=== PATIENT | male | born 1990 | race Caucasian/White ===

== ENCOUNTER 2020-01-19 10:29 | Emergency (ER) | payer BC, SELFPAY ==
--- NOTE | ~2020-01-19 | XR_ITS ---
EXAMINATION: XR chest 1V portable DATE: 01/19/2020 11:17 INDICATION: Shortness of breath. Coughing. Laryngitis. TECHNIQUE: frontal view of the chest was obtained. COMPARISON: Chest radiograph dated 08/23/2019 FINDINGS: The lungs remain clear with no focal airspace opacities, pulmonary edema, pleural effusion or pneumot horax. The cardiomediastinal silhouette is normal. Visualized bones and soft tissues are unremarkable . IMPRESSION: 1. No acute cardiopulmonary disease. Reviewed, dictated and finalized at location A.
[2020-01-19 10:30] VITALS: BP 122/77; PULSE 75; RESP 20; TEMP 36.8; O2SAT 98
--- NOTE | 2020-01-19 10:54 | ECG_ITS ---
Measurements Intervals [place] Rate: 72 P: 46 RI: 167 QRS: 82 QRSD: 89 T: 47 QT: 404 QTc: 443 Interpretive Statements SINUS RHYTHM WITH SINUS ARRHYTHMIA DELAYED PRECORDIAL R/S TRANSITION ST ELEVATION IN DIFFUSE LEADS- PROBABLY EARLY REPOLARIZATION BORDERLINE ECG Electronically Signed On 01-19-2020 12:06:50 CDT by Clay Scanlon D.O.
[2020-01-19] MEDS: methylPREDNISolone ACETATE 40 MG/ML VIAL 80 MG IM (11:05)
--- NOTE | 2020-01-19 11:11 | PC.NURSE ---
report to DION Chance.
[2020-01-19 11:17] LABS: Basophils Absolute Auto 0.04 K/mm3 (0.00-0.10); Basophils Percent Auto 0.4 % (0.0-1.0); Eosinophils Absolute Auto 0.21 K/mm3 (0.02-0.50); Eosinophils Percent Auto 1.9 % (1.0-6.0); Hematocrit 46.2 % (40.0-54.0); Hemoglobin 15.9 g/dL (14.0-18.0); Immature Granulocyte Absolute 0.06 K/mm3 (0.00-0.00); Immature Granulocyte Percent A 0.5 % (0.0-0.0); Lymphocytes Absolute Auto 1.89 K/mm3 (1.10-4.50); Lymphocytes Percent Auto 16.7 % (18.0-42.0); Mean Corpuscular HGB Conc 34.4 g/dL (32.0-36.0); Mean Corpuscular Hemoglobin 29.5 pg (27.0-31.0); Mean Corpuscular Volume 85.7 fL (78.0-102.0); Mean Platelet Volume 10.4 fl (8.7-11.0); Monocytes Absolute Auto 0.78 K/mm3 (0.10-0.90); Monocytes Percent Auto 6.9 % (2.0-11.0); Neutrophils Absolute Auto 8.4 K/mm3 (1.7-7.2); Neutrophils Percent Auto 73.6 % (50.0-70.0); Platelet Count Result 258 K/mm3 (150-420); Red Blood Count 5.39 M/mm3 (4.70-6.10); Red Cell Distribution Width 12.4 % (11.6-14.4); White Blood Count 11.4 K/mm3 (4.8-10.8)
[2020-01-19 11:30] VITALS: PULSE 72; RESP 16
[2020-01-19] MEDS: IPRATROPIUM 0.5 MG/ALBUTEROL SULFATE 2.5 MG AMPUL.NEB 3 ML INHALATION (11:30)
[2020-01-19 11:34] LABS: Alanine Aminotransferase 61 U/L (16-63); Alkaline Phosphatase 76 U/L (46-116); Anion Gap 11.6 mmol/L (7-16); Aspartate Amino Transferase 26 U/L (15-37); Bilirubin,Total 0.5 mg/dL (0.00-1.00); Blood Urea Nitrogen 14 mg/dL (7-18); Calcium 8.6 mg/dL (8.5-10.1); Carbon Dioxide 26 mmol/L (21-32); Chloride 105 mmol/L (98-108); Estimated CRCL calculation 113 ml/min; Estimated Glomerular Filt Rate > 60; Glucose 106 mg/dL (70-99); Osmolality Calculated 288 mOsm/kg (285-295); Potassium 3.6 mmol/L (3.5-5.1); Sodium 139 mmol/L (136-145); Total Protein 7.2 g/dL (6.4-8.2)
[2020-01-19 11:35] LABS: Troponin I < 0.02 ng/mL (0.00-0.056)
[2020-01-19 11:39] VITALS: PULSE 60; RESP 16
--- NOTE | 2020-01-19 11:55 | ED.SOB ---
HPI - SOB/Dyspnea General Chief Complaint: Shortness of Breath/Dyspnea Stated Complaint: Loss of voice,Cough Trouble breathing Source: patient Mode of arrival: ambulatory Limitations: no limitations History of Present Illness HPI Narrative: This is a 29-year-old male with no known past medical history presents with some shortness of breath while he was working outdoors and came in contact with some [place] products causing some shortness of breath with cough cough is nonproductive there is no chest pain or tightness no history of asthma or COPD, patient is a smoker denies alcohol use does not take any inhalers or any prescription medications. Symptoms started earlier today while he was working outdoors causing him to be short of breath. MD elicited complaint: shortness of breath and cough Onset (ago): hour(s) Timing: intermittent Severity: moderate Exacerbating factors: coughing, warm air, humidity, strong odors and cleaning product exposure Relieving factors: rest Associated symptoms: cough Related Data Allergies Allergy/AdvReac Type Severity Reaction Status Date / Time [place] Allergy Unknown Verified 01/19/20 11:01 cefaclor [From Ceclor] Allergy Unknown Verified 08/23/19 07:47 Sulfa (Sulfonamide Allergy Unknown Verified 08/23/19 07:47 Antibiotics) Review of Systems Review of Systems: All systems reviewed & are unremarkable except as noted in HPI and below PMFSH Past Medical History Medical History No active medical problems Social History Social History Smoking status: Current every day smoker Alcohol intake: former Substance use: current Substance use type: marijuana Exam Const: General: no acute distress Orientation/consciousness: patient oriented x3 HENMT: Head: normal to inspection Eyes: Conjunctivae: conjunctivae normal Pupils: Equal, round and reactive pupils present Neck: Neck: normal visual inspection and no lymphadenopathy Chest: Chest palpation & inspection: normal inspection of the chest Resp: Effort & Inspection: normal respiratory effort Auscultation: clear to auscultation bilaterally Cardio: Rate: regular rate Rhythm: regular rhythm GI: GI Palp: Yes Soft to palpation : Testes: Testes normal Skin: General skin exam: normal color Rashes: no rashes Neuro: General: patient oriented x3 Extrem: General: normal to inspection Psych: Mental Status: mental status grossly normal 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 Expressive the patient that could be related to allergies and will give discharge medications include ProAir and Medrol Dosepak. Vital Signs Vital signs: Vital Signs Temperature 36.8 C 01/19/20 10:30 Pulse Rate 75 01/19/20 10:30 Respiratory Rate 20 01/19/20 10:30 Blood Pressure 122/77 01/19/20 10:30 Pulse Oximetry 98 01/19/20 10:30 Temperature 36.8 C 01/19/20 10:30 Pulse Rate 60 01/19/20 11:39 Respiratory Rate 16 01/19/20 11:39 Blood Pressure 122/77 01/19/20 10:30 Pulse Oximetry 98 01/19/20 10:30 MDM - SOB/Dyspnea Lab Data Result diagrams: 01/19/20 11:04 01/19/20 11:04 Labs: Lab Results 01/19/20 01/19/20 01/19/20 Range/Units 10:55 11:04 11:04 WBC 11.4 H (4.8-10.8) K/mm3 RBC 5.39 (4.70-6.10) M/mm3 Hgb 15.9 (14.0-18.0) g/dL Hct 46.2 (40.0-54.0) % MCV 85.7 (78.0-102.0) fL MCH 29.5 (27.0-31.0) pg MCHC 34.4 (32.0-36.0) g/dL RDW 12.4 (11.6-14.4) % Plt Count 258 (150-420) K/mm3 MPV 10.4 (8.7-11.0) fl Immature Gran % (Auto) 0.5 H (0.0-0.0) % Neut % (Auto) 73.6 H (50.0-70.0) % Lymph % (Auto) 16.7 L (18.0-42.0) %
[2020-01-19 12:11] VITALS: BP 117/59; PULSE 65; RESP 16; O2SAT 98
[2020-01-20 13:04] LABS: SARS-CoV-2 RNA PCR Negative
== END 2020-01-19 12:12 | disposition home or self-care (01) ==
PROVIDERS: Emergency Provider Emergency Medicine; PCP Physician Assistant; Visit Provider Emergency Medicine
DX: J40 Bronchitis, not specified as acute or chronic (principal); T78.40XA Allergy, unspecified, initial encounter
CPT/HCPCS: 36415; 71045; 80053; 84484; 85025; 87635; 93005; 94640; 96372; 99283; 99284; C9803; J1030; U0003

== ENCOUNTER 2020-06-13 12:37 | Observation (INO) | payer BC, SELFPAY ==
--- NOTE | ~2020-06-13 | CT_ITS ---
EXAMINATION: CT abdomen pelvis w con EXAM DATE: 06/13/2020 14:34 INDICATION: abdominal pain, increased white blood cell count, vomiting . TECHNIQUE: Spiral CT of the abdomen and pelvis was performed following intravenous injection of 100 m L Omnipaque 350. Axial, coronal and sagittal images were reviewed. The dose-length product (DLP) fo r this examination was 500.45 mGy-cm. The exposure was tailored according to patient size (auto mA e xposure control), and iterative reconstruction (ASIR) was used as additional dose reduction technique . Comparison is made to prior examination from 08/23/2019. FINDINGS: There is hepatic steatosis without suspicious focal lesion identified. Spleen, adrenal glan ds, pancreas are unremarkable. Gallbladder is unremarkable. No biliary obstruction. Portal and spl enic veins are patent. Kidneys enhance symmetrically. There is no hydronephrosis. There is an 8 mm right renal cyst and perihilar location. The prostate is unremarkable. The bladder is unremarkable. There is no retroperitoneal or pelvic lymphadenopathy. The appendix is normal. The stomach and small bowel are unremarkable. There is expected amount of c olonic stool. No free intraperitoneal gas. The heart is normal in size. There are no pericardial or pleural effusions. The lung bases are unremarkable. The bones are unremarkable. IMPRESSION: 1. Hepatic steatosis. Reviewed, dictated and finalized at location B. 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 Hepatic steatosis.
--- NOTE | 2020-06-13 13:04 | ED.NAVMDI ---
HPI - Nausea/Vomiting/Diarrhea General Chief complaint: Nausea/Vomiting/Diarrhea Stated complaint: nauseated cold chills Time Seen by Provider: 06/13/20 13:04 Source: patient Mode of arrival: ambulatory Limitations: no limitations History of Present Illness HPI Narrative: 29-year-old man who was previously well comes in today complaining of right-sided abdominal pain and vomiting and chills that started when he woke up this morning. Patient states he has been vomiting since. He denies fever, headache, chest pain, diarrhea, sick contacts of any kind, no COVID exposures. He lives with his girlfriend who was well. He states that he occasionally smokes marijuana. He denies taking any medications or other drugs. He denies history of surgery. MD elicited complaint: nausea, vomiting and abdominal pain Onset (ago): hour(s) (6) Description of vomiting: watery Associated nausea: Yes Associated abdominal pain: Yes Location of pain: RLQ and R flank Pain consistency: constant Severity: severe Quality: sharp Exacerbating factors: none Relieving factors: none Context: marijuana use Associated symptoms: fever/chills and other (chills) Treatment prior to arrival: none Related Data Home Medications Medication Instructions Recorded Confirmed No Home Medications 06/13/20 06/13/20 Allergies Allergy/AdvReac Type Severity Reaction Status Date / Time [place] Allergy Unknown Verified 01/19/20 11:01 cefaclor [From Ceclor] Allergy Unknown Verified 08/23/19 07:47 Sulfa (Sulfonamide Allergy Unknown Verified 08/23/19 07:47 Antibiotics) Review of Systems Constitutional: Constitutional: Reports chills Eyes: Eyes: Denies change in vision, Denies diplopia and Denies photophobia ENT: Reports headache(s), Denies nasal congestion and Denies sore throat Cardiovascular: Cardiovascular: Denies chest pain, Denies leg edema and Denies dyspnea on exertion Respiratory: Respiratory: Denies cough, Denies dyspnea and Denies wheezing Gastrointestinal: Gastrointestinal: Reports abdominal pain, Denies melena, Denies hematochezia, Denies diarrhea, Reports nausea, Reports vomiting and Denies hematemesis Genitourinary: Genitourinary: Denies hematuria and Denies dysuria Musculoskeletal: Musculoskeletal: Denies arthralgias and Denies joint swelling Integumentary/Breasts: Skin/Breast: Denies lesions, Denies erythema and Denies rash Neurologic: Denies confusion, Denies vertigo, Denies dizziness, Denies syncope, Denies lack of coordination, Denies focal weakness and Denies loss of vision Hematologic/Lymphatic: Hematologic/Lymphatic: Denies easy bleeding and Denies easy bruising Allergic/Immunologic: Allergic/Immunologic: Denies urticaria, Denies lip swelling and Denies throat swelling PMFSH Past Medical History Medical History (Updated 06/13/20 @ 16:14 by Prabhjot Rose MD) No active medical problems Social History Social History Smoking status: Current every day smoker Alcohol intake: former Substance use: current Substance use type: marijuana Exam Const: General: cooperative, healthy appearing, acute distress moderate and uncomfortable Nutritional Appearance: average body habitus Orientation/consciousness: patient oriented x3 Limitations: no limitations HENMT: Head: normal to inspection Ears: TM's normal bilaterally and EAC's normal Face and sinus: normal facial exam Mouth: Yes Normal oral and palatal mucosa present and Yes moist mucous membranes Throat: posterior oropharynx normal Eyes: General: appearance normal, both eyes and all related structures Cornea: corneas normal Pupils: Equal, round and reactive pupils present EOM: EOMs intact bilaterally Resp: Effort & Inspection: normal respiratory effort, able to speak in complete sentences and no respiratory distress Auscultation: clear to auscultation bilaterally Cardio: Rate: regular rate Rhythm: regular
[2020-06-13 13:05] VITALS: BP 114/74; PULSE 58; RESP 20; TEMP 36.3; O2SAT 99
[2020-06-13] MEDS: SODIUM CHLORIDE 0.9% IV 1,000 ML 999 ML IV CONT (13:15)
[2020-06-13] MEDS: ONDANSETRON INJ 4 MG/2 ML VIAL IV PUSH ×3 (13:15→22:30)
[2020-06-13 13:33] LABS: Basophils Absolute Auto 0.04 K/mm3 (0.00-0.10); Basophils Percent Auto 0.2 % (0.0-1.0); Hematocrit 50.4 % (40.0-54.0); Hemoglobin 17.2 g/dL (14.0-18.0); Immature Granulocyte Absolute 0.08 K/mm3 (0.00-0.00); Immature Granulocyte Percent A 0.5 % (0.0-0.0); Lymphocytes Absolute Auto 0.98 K/mm3 (1.10-4.50); Lymphocytes Percent Auto 5.9 % (18.0-42.0); Mean Corpuscular HGB Conc 34.1 g/dL (32.0-36.0); Mean Corpuscular Hemoglobin 29.1 pg (27.0-31.0); Mean Corpuscular Volume 85.1 fL (78.0-102.0); Mean Platelet Volume 10.4 fl (8.7-11.0); Monocytes Absolute Auto 0.55 K/mm3 (0.10-0.90); Monocytes Percent Auto 3.3 % (2.0-11.0); Neutrophils Absolute Auto 15.1 K/mm3 (1.7-7.2); Neutrophils Percent Auto 90.1 % (50.0-70.0); Platelet Count Result 345 K/mm3 (150-420); Red Blood Count 5.92 M/mm3 (4.70-6.10); Red Cell Distribution Width 12.2 % (11.6-14.4); White Blood Count 16.8 K/mm3 (4.8-10.8)
[2020-06-13 13:49] LABS: Alanine Aminotransferase 85 U/L (16-63); Albumin Level 5.3 g/dL (3.4-5.0); Alkaline Phosphatase 84 U/L (46-116); Anion Gap 17 mmol/L (8-16); Aspartate Amino Transferase 35 U/L (15-37); Bilirubin,Total 0.9 mg/dL (0.00-1.00); Blood Urea Nitrogen 20 mg/dL (7-18); Carbon Dioxide 21 mmol/L (21-32); Chloride 103 mmol/L (98-108); Estimated Glomerular Filt Rate > 60; Glucose 176 mg/dL (70-99); Lipase 48 U/L (73-393); Osmolality Calculated 298 mOsm/kg (285-295); Potassium 4.2 mmol/L (3.5-5.1); Sodium 141 mmol/L (136-145); Total Protein 8.9 g/dL (6.4-8.2)
[2020-06-13 13:52] LABS: Lactic Acid Reflex 1.8 mmol/L (0.4-2.0)
[2020-06-13 14:00] VITALS: BP 121/69; PULSE 61; RESP 20; O2SAT 98
[2020-06-13] MEDS: MORPHINE SULFATE (*CRX) 4 MG/ML INJ IV PUSH (14:10)
[2020-06-13] MEDS: PANTOPRAZOLE SODIUM IV 40 MG VIAL IV PUSH (14:10)
[2020-06-13 14:16] LABS: Add Urine Microscopic? YES; Appearance Urine Clear (Clear); Bilirubin Urine 1+ (Negative); Blood Urine Negative (Negative); Color Urine Yellow (Yellow); Glucose Urine UA Negative (Negative); Ketones Urine 3+ (Negative); Leukocyte Esterase Ur Negative LEU/UL (Negative); Nitrate Urine Negative (Negative); Protein Urine 1+ (Negative); Specific Grav Ur 1.025 (1.010-1.020); pH Urine 8.5 (5.0-8.0)
[2020-06-13 14:22] LABS: RBC Urine 0-2 /hpf (0-2)
[2020-06-13 14:23] LABS: Amorphous Sediment Urine Moderate; Bacteria Urine 2+ /hpf; Squamous Epithelial Cell Urine Rare /hpf (Few); WBC Urine 0-3 /hpf (0-3)
[2020-06-13 14:24] LABS: Mucus Urine Heavy /lpf
[2020-06-13] MEDS: PROMETHAZINE HCL 25 MG/ML AMPUL IM (14:40)
--- NOTE | 2020-06-13 14:58 | PC.NURSE ---
report to DION Menard
--- NOTE | 2020-06-13 14:58 | PC.NURSE ---
pt resting per cot.
[2020-06-13 15:15] VITALS: BP 154/81; PULSE 61; RESP 20; O2SAT 98
--- NOTE | 2020-06-13 15:15 | PC.NURSE ---
report to leo costa
[2020-06-13 16:00] VITALS: BP 147/58; PULSE 58; RESP 20; O2SAT 98
[2020-06-13] MEDS: ACETAMINOPHEN 500 MG TABLET 1000 MG (16:00)
[2020-06-13 16:48] VITALS: BMI 24.1
[2020-06-13] MEDS: DEXTROSE 5%/0.9% SOD CHL 1,000 ML 200 ML IV CONT (17:00)
[2020-06-13 17:02] LABS: Amphetamine Screen Urine Negative (Negative); Barbiturate Screen Urine Negative (Negative); Benzodiazepines Screen Urine Negative (Negative); Cannabinoid Screen Urine Positive (Negative); Cocaine Screen Urine Negative (Negative); Methadone Screen Urine Negative (Negative); Opiate Screen Urine Negative (Negative); Phencyclidine Screen Urine Negative (Negative)
[2020-06-13 17:06] LABS: Ethanol 3 mg/dL (0-6)
[2020-06-13 17:07] LABS: Acetaminophen 0 ug/mL (10-30)
--- NOTE | 2020-06-13 17:10 | ADMGEN ---
This patient, Chris Ni, was admitted to 2nd Floor Room 205-2. Patient/family oriented to hospital policies and general routines including ID bracelet, bed and alarms, visiting hours, pain management, procedures, bathroom and other care routines, personal items, smoking policy, room service/diet, and visiting hours. Information on how to activate the Rapid Response Team has been discussed. Patient/Family are encouraged to report perceived risks to care and to ask questions if they do not understand what they are told or what they should do.
[2020-06-13 17:12] LABS: Base Excess ABG -3.7 mmol/L (0-2); Carboxyhemoglobin 2.1 % (0-1.5); HCO3 ABG 21.2 mmol/L (23-29); Methemoglobin ABG 0.2 % (0-1.5); Oxygen Content ABG 24.1 %vol (16.0-22.0); Oxygen Saturation ABG 98.6 % (95-97); Oxyhemoglobin 96.3 % (94-100); PCO2 ABG 38.4 mmHg (35-45); PO2 ABG 135.8 mmHg (80-90); Reduced Hemoglobin 1.4 % (0-1.5); Total Hemoglobin 17.7 g/dL; pH ABG 7.36 (7.35-7.45)
[2020-06-13 17:13] LABS: Device ROOM AIR; Modified Allen's Test Pass; Site Drawn RIGHT RADIAL
--- NOTE | 2020-06-13 17:14 | PC.NURSE ---
pt asks for more nausea and pain meds, neither able to be given at this time, pt is aware, warm blanket given
[2020-06-13 17:19] VITALS: BP 129/93; PULSE 75; RESP 20; TEMP 36.3; O2SAT 97
[2020-06-13] MEDS: MORPHINE SULFATE (*CRX) 2 MG/ML INJ IV PUSH (18:13)
--- NOTE | 2020-06-13 18:18 | PC.NURSE ---
pt asks for pain meds and nausea, another warm blanket given, fluids running
--- NOTE | 2020-06-13 18:49 | PC.NURSE ---
pt requests ice chips, tolerating well, iv running
--- NOTE | 2020-06-13 20:40 | PC.NURSE ---
pt seems to be feeling better, sitting up in bed drinking denise mist, has eaten a full cup of ice chips, reports the nausea is gone at this time
--- NOTE | 2020-06-13 20:43 | PC.NURSE ---
pt given hu and toiletries bag that his mother has dropped off for him, mother calls for information, pt gives verbal permission to rn to discuss his medical information with her, iv fluids running
--- NOTE | 2020-06-13 21:47 | PC.NURSE ---
pt resting in bed, denies n/v, urinal emptied, iv running
--- NOTE | 2020-06-13 22:15 | PC.NURSE ---
resting in bed, no s/sx of distress or n/v, iv running, call light in reach
--- NOTE | 2020-06-13 22:38 | PC.NURSE ---
pt calls from shower for towels, pt has taken iv pump into bathroom with him for shower, given fresh towels and gown
--- NOTE | 2020-06-13 23:30 | PC.NURSE ---
Patient resting in bed. IV site is intact and fluids are infusing per order. No signs of distress are observed. Call light is within reach.
[2020-06-14] VITALS: BP 129/93; PULSE 78; RESP 18; TEMP 37.7; O2SAT 98
[2020-06-14] MEDS: DEXTROSE 5%/0.9% SOD CHL 1,000 ML 200 ML IV CONT ×2 (00:16→04:54)
[2020-06-14] MEDS: MORPHINE SULFATE (*CRX) 2 MG/ML INJ IV PUSH (00:28)
--- NOTE | 2020-06-14 00:30 | PC.NURSE ---
Patient resting in bed. He was given a cup of ice and Carissa Mist per request. He reports upper abdominal pain but denies nausea at this time. Patient found to have a low grade temperature of 99.9, he denies chills. Charge nurse notified of temperature.
--- NOTE | 2020-06-14 01:17 | PC.NURSE ---
patient resting in bed. He states that abdominal pain has improved after receiving PRN morphine. He denies n/v at this time and seems to be tolerating Carissa Mist well.
--- NOTE | 2020-06-14 02:16 | PC.NURSE ---
Patient resting in bed. No signs of pain, distress or n/v are observed. IV fluids continue to infuse. Call light is within reach.
--- NOTE | 2020-06-14 03:29 | PC.NURSE ---
Patient resting in bed. No signs of n/v, pain or distress are observed. IV fluids are infusing per order. Call light is within reach.
--- NOTE | 2020-06-14 04:05 | PC.NURSE ---
Patient resting in bed watching television. Patient has no complaints of pain or nausea at this time. Patient tolerating clear liquids well.
--- NOTE | 2020-06-14 05:14 | PCDIET ---
Patient resting in bed. No complaints of pain or n/v at this time. Patient provided with a cup of ice per his request.
[2020-06-14 05:53] LABS: Basophils Absolute Auto 0.02 K/mm3 (0.00-0.10); Basophils Percent Auto 0.2 % (0.0-1.0); Eosinophils Absolute Auto 0.07 K/mm3 (0.02-0.50); Eosinophils Percent Auto 0.6 % (1.0-6.0); Hemoglobin 13.9 g/dL (14.0-18.0); Immature Granulocyte Absolute 0.03 K/mm3 (0.00-0.00); Immature Granulocyte Percent A 0.3 % (0.0-0.0); Lymphocytes Absolute Auto 2.18 K/mm3 (1.10-4.50); Lymphocytes Percent Auto 19.4 % (18.0-42.0); Mean Corpuscular HGB Conc 33.1 g/dL (32.0-36.0); Mean Corpuscular Hemoglobin 28.9 pg (27.0-31.0); Mean Corpuscular Volume 87.3 fL (78.0-102.0); Mean Platelet Volume 10.1 fl (8.7-11.0); Monocytes Absolute Auto 1.24 K/mm3 (0.10-0.90); Neutrophils Absolute Auto 7.7 K/mm3 (1.7-7.2); Neutrophils Percent Auto 68.5 % (50.0-70.0); Platelet Count Result 259 K/mm3 (150-420); Red Blood Count 4.81 M/mm3 (4.70-6.10); Red Cell Distribution Width 12.7 % (11.6-14.4); White Blood Count 11.3 K/mm3 (4.8-10.8)
[2020-06-14 06:13] LABS: Lactic Acid Reflex 0.8 mmol/L (0.4-2.0)
[2020-06-14 06:19] LABS: Alanine Aminotransferase 59 U/L (16-63); Albumin Level 3.7 g/dL (3.4-5.0); Alkaline Phosphatase 57 U/L (46-116); Anion Gap 11 mmol/L (8-16); Aspartate Amino Transferase 33 U/L (15-37); Bilirubin,Total 0.7 mg/dL (0.00-1.00); Blood Urea Nitrogen 11 mg/dL (7-18); Calcium 8.2 mg/dL (8.5-10.1); Carbon Dioxide 25 mmol/L (21-32); Chloride 105 mmol/L (98-108); Estimated CRCL calculation 110 ml/min; Estimated Glomerular Filt Rate > 60; Glucose 122 mg/dL (70-99); Osmolality Calculated 292 mOsm/kg (285-295); Potassium 3.5 mmol/L (3.5-5.1); Sodium 141 mmol/L (136-145); Total Protein 6.5 g/dL (6.4-8.2)
[2020-06-14 07:33] VITALS: BP 119/56; PULSE 65; RESP 18; TEMP 37.2; O2SAT 98
--- NOTE | 2020-06-14 07:56 | PC.NURSE ---
Tolerating PO fluids, advanced diet to regular for breakfast, denies nausea, no pain noted
--- NOTE | 2020-06-14 08:10 | PC.NURSE ---
Verbal order from Melony Briseno RESERVATIONIST to discontinue IV fluids at this time
--- NOTE | 2020-06-14 08:42 | PM.SD ---
Same Day Admit/Disch: HPI History of Present Illness Chief complaint: abd pain Narrative: Chris Ni is a 29 year old male who presented to the ED today with complaints of right lower quadrant pain with nausea and vomiting. Patient denies any past medical history. According to patient he woke up yesterday with nausea and vomiting. He noted that the previous night he had a [employer] and noted that it tasted funny. Patient does believe that it might have gotten food poisoning from [employer]. Patient does smoke marijuana on occasion. The patient denies SOB, CP, palpitation, extremity numbness, lightheadedness, dizziness, constipation, diarrhea, chills, or fever. Today patient has not experienced any nausea or vomiting and is able to tolerate his meals. Patient agrees that he is ready for discharge today PMFSH Past Medical History Medical History (Updated 06/14/20 @ 08:48 by YAIMA Ojeda) No active medical problems Social History Social History Smoking status: Current every day smoker Tobacco type: cigarettes Second hand tobacco smoke exposure: Yes Alcohol intake: never Substance use: current Substance use type: marijuana Spiritual care concerns: No Same Day Admit/Disch: Med Pre-admit Medications Home Medications Medication Instructions Recorded Confirmed Type ondansetron HCl [Zofran] 4 mg PO Q8H PRN #30 tablet 06/14/20 Rx Exam Narrative: Exam Narrative: GENERAL: This is a well-nourished, well-developed patient, in no apparent distress. HEAD: normocephalic, atraumatic. EYES: PERRL. Sclera clear/white. Vision is grossly intact. EARS: External ears normal, auditory canals clear and without drainage, TMs normal without perforation. Hearing grossly intact. NOSE: External nose normal with no obvious nasal discharge, nares without redness, no rhinorrhea. THROAT: Mucous membranes moist, posterior pharynx clear. NECK: Neck supple, non-tender without lymphadenopathy, masses or thyromegaly. CARDIOVASCULAR: Regular rate and rhythm without murmurs, gallops, or rubs. RESPIRATORY: Clear to auscultation. Breath sounds equal bilaterally. No wheezes, rales, or rhonchi. GASTROINTESTINAL: Abdomen soft, non-tender, nondistended. Bowel sounds are active. No hepato-splenomegaly, or palpable masses. No guarding. SKIN: warm, intact with no suspicious lesions or rash, good texture and turgor. NEURO: awake, alert, and oriented to person, place and time. There were no obvious focal neurologic abnormalities. Steady gait EXTREMITIES: Normal range of motion. No edema. No calf tenderness. Negative Homans sign bilaterally. BACK: Nontender without deformity or crepitance. No flank tenderness. DS: Data Data Completed and Pending Labs on day of discharge: Labs from last 24 hours 06/14/20 06/14/20 06/14/20 05:40 05:40 05:40 WBC 11.3 H RBC 4.81 Hgb 13.9 L Hct 42.0 MCV 87.3 MCH 28.9 MCHC 33.1 RDW 12.7 Plt Count 259 MPV 10.1 Immature Gran % (Auto) 0.3 H Neut % (Auto) 68.5 Lymph % (Auto) 19.4 [place] % (Auto) 11.0 Eos % (Auto) 0.6 L Baso % (Auto) 0.2 Lymph # (Auto) 2.18 [place] # (Auto) 1.24 H Eos # (Auto) 0.07 Baso # (Auto) 0.02 Abs Immat Gran (auto) 0.03 H Absolute Neuts (auto) 7.7 H Absolute Nucleated RBC 0.00 Nucleated RBC % 0.0 Puncture Site ABG pH ABG pCO2 ABG pO2 ABG PO2/FiO2 Ratio ABG HCO3 ABG O2 Saturation ABG O2 Content ABG Base Excess A-a Gradient Oxyhemoglobin Carboxyhemoglobin Methemoglobin Reduced Hemoglobin Total Hemoglobin O2 Delivery Device O2 Liters/Min FiO2 Sodium 141 Potassium 3.5 Chloride 105 Carbon Dioxide 25 Anion Gap 11 BUN 11 Creatinine 0.95 Estim Creat Clear Calc 110 Estimated GFR > 60 Glucose 122 H Calculated Osmolality 292 Lactic Acid 0.8 Calc
--- NOTE | 2020-06-14 09:52 | PC.NURSE ---
Up independent in room showered and dressed self, awaiting discharge evaluation by doctor and orders by DISINTEGRATOR OPERATOR
--- NOTE | 2020-06-14 11:15 | PC.NURSE ---
Discharge to home ambulatory, discharge instructions reviewed with patient, no questions or concerns regarding instructions, discussed removal of saline lock, signs and symptoms of infection to watch for.
--- NOTE | 2020-06-15 13:05 | PC.NURSE ---
Pt states he received and understood his discharge instructions. He had no other comments.
[2020-06-15 15:21] LABS: SARS-CoV-2 RNA PCR Negative
== END 2020-06-14 11:15 | disposition home or self-care (01) ==
LOC: CHSED 16:14 → CHS2ND 16:29
PROVIDERS: Nurse Practitioner; Admitting Provider Emergency Medicine; Emergency Provider Emergency Medicine; PCP Physician Assistant; Visit Provider Emergency Medicine
DX: R11.10 Vomiting, unspecified (principal); R10.31 Right lower quadrant pain; K76.0 Fatty (change of) liver, not elsewhere classified; F12.90 Cannabis use, unspecified, uncomplicated; F17.210 Nicotine dependence, cigarettes, uncomplicated; Z20.828 Contact with and (suspected) exposure to other viral communicable diseases
CPT/HCPCS: 36415; 36600; 74177; 80053; 80307; 81001; 82375; 82805; 83050; 83605; 83690; 85025; 87040; 87635; 96361; 96372; 96374; 96375; 96376; 99285; C9113; C9803; G0378; G0379; J2270; J2405; J2550; J7030; J7042; Q9965; U0003

== ENCOUNTER 2021-10-12 15:12 | Emergency (ER) | payer OTHER, MEDICAID, SELFPAY ==
--- NOTE | ~2021-10-12 | CT_ITS ---
EXAMINATION: CT abdomen pelvis w con DATE: 10/12/2021 17:49 INDICATION: Right lower quadrant pain TECHNIQUE: Computed tomography (CT) of the abdomen and pelvis was performed with 100 cc Omnipaque 350 intravenous contrast. The dose-length product was 476.25 mGy-cm. COMPARISON: CT dated 06/13/2020. FINDINGS: Lung bases are unremarkable. Heart size normal. No significant pleural or pericardial effus ion. Fatty infiltration of the liver. The spleen, pancreas, adrenal glands and kidneys are unremarkab le. Nonobstructive bowel gas pattern. Normal appendix. Colonic diverticulosis without diverticulitis. No significant vascular abnormality. No lymphadenopathy. No acute osseous abnormality. IMPRESSION: 1. No acute abdominal abnormality. Reviewed, dictated and finalized at location A. 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
[2021-10-12 15:21] VITALS: BP 122/101; PULSE 78; RESP 20; TEMP 36.4; O2SAT 97
--- NOTE | 2021-10-12 15:29 | ED.NAVMDI ---
HPI - Nausea/Vomiting/Diarrhea General Chief complaint: Nausea/Vomiting/Diarrhea Stated complaint: vomiting, sweating since this AM Time Seen by Provider: 10/12/21 15:29 Source: patient Mode of arrival: ambulatory Limitations: no limitations History of Present Illness HPI Narrative: Previously well 30 and comes emergency department complaining of sweating, nausea, vomiting and diarrhea that started this morning bruising states that he felt fine when he went to bed last night. He has had no sick contacts and denies blood in his vomitus, blood in his stool, fever, abdominal pain, or rash. States he has had some cough and cold symptoms recently. He has not had a COVID vaccine. MD elicited complaint: nausea, vomiting and diarrhea Onset (ago): hour(s) (10) Description of vomiting: food contents and watery Description of diarrhea: watery Associated nausea: Yes Associated abdominal pain: No Context: marijuana use Associated symptoms: cough and fatigue Related Data Allergies Allergy/AdvReac Type Severity Reaction Status Date / Time [place] Allergy Unknown Verified 10/12/21 18:06 cefaclor [From Ceclor] Allergy Unknown Verified 10/12/21 18:06 Sulfa (Sulfonamide Allergy Unknown Verified 10/12/21 18:06 Antibiotics) Review of Systems Review of Systems: All systems reviewed & are unremarkable except as noted in HPI and below Constitutional: Constitutional: Reports chills, Reports fatigue, Denies fever(s) and Denies weakness Eyes: Eyes: Denies change in vision and Denies photophobia ENT: Reports nasal congestion and Denies sore throat Cardiovascular: Cardiovascular: Reports chest pain and Denies radiating jaw, neck or arm pain Respiratory: Respiratory: Reports cough, Denies dyspnea and Denies wheezing Gastrointestinal: Gastrointestinal: Denies abdominal pain, Reports diarrhea, Reports nausea and Reports vomiting Genitourinary: Genitourinary: Denies hematuria, Denies dysuria and Denies urinary frequency Musculoskeletal: Musculoskeletal: Denies back pain, Denies arthralgias and Denies joint swelling Integumentary/Breasts: Skin/Breast: Denies pruritus, Denies erythema and Denies rash Allergic/Immunologic: Allergic/Immunologic: Denies throat swelling and Denies tongue swelling PMFSH Past Medical History Medical History (Updated 10/12/21 @ 18:26 by Prabhjot Rose MD) No active medical problems Social History Social History Smoking status: Current every day smoker Tobacco type: cigarettes Second hand tobacco smoke exposure: Yes Alcohol intake: never Substance use: current Substance use type: marijuana Spiritual care concerns: No Exam Const: General: healthy appearing and alert Orientation/consciousness: patient oriented x3 Limitations: no limitations Other: Mild acute distress. HENMT: Head: normal to inspection Ears: external ears normal, TM's normal bilaterally and EAC's normal General nose exam: Normal nares present Mouth: Yes moist mucous membranes Throat: posterior oropharynx normal Eyes: Cornea: corneas normal Pupils: Equal, round and reactive pupils present EOM: EOMs intact bilaterally Resp: Effort & Inspection: normal respiratory effort and not labored Auscultation: clear to auscultation bilaterally, no rales, no rhonchi and no wheezes Cardio: Rate: regular rate Rhythm: regular rhythm Heart sounds: no murmurs GI: GI Palp: Yes Soft to palpation, No Tenderness to palpation present (GI) and No Guarding due to palpation present (GI) Auscultation: normal bowel sounds Skin: General skin exam: normal color, no jaundice and no pallor Rashes: no rashes Neuro: General: patient oriented x3 and no focal motor deficits Speech: normal speech Gait exam (Neuro): Normal gait present Extrem: General: normal to inspection and no clubbing, cyanosis or edema Psych: Appearance: grossly normal and well kempt Mental Status: mental status gr
[2021-10-12] MEDS: ONDANSETRON INJ 4 MG/2 ML VIAL IV PUSH ×2 (15:45→17:25)
[2021-10-12] MEDS: SODIUM CHLORIDE 0.9% IV 1,000 ML 999 ML IV CONT ×2 (15:45→17:57)
[2021-10-12 16:01] LABS: Basophils Absolute Auto 0.04 K/mm3 (0.00-0.10); Basophils Percent Auto 0.3 % (0.0-1.0); Eosinophils Absolute Auto 0.06 K/mm3 (0.02-0.50); Eosinophils Percent Auto 0.5 % (1.0-6.0); Hematocrit 50.2 % (40.0-54.0); Hemoglobin 17.1 g/dL (14.0-18.0); Immature Granulocyte Absolute 0.04 K/mm3 (0.00-0.00); Immature Granulocyte Percent A 0.3 % (0.0-0.0); Lymphocytes Absolute Auto 1.25 K/mm3 (1.10-4.50); Lymphocytes Percent Auto 10.7 % (18.0-42.0); Mean Corpuscular HGB Conc 34.1 g/dL (32.0-36.0); Mean Corpuscular Hemoglobin 29.6 pg (27.0-31.0); Mean Platelet Volume 10.4 fl (8.7-11.0); Monocytes Absolute Auto 0.71 K/mm3 (0.10-0.90); Monocytes Percent Auto 6.1 % (2.0-11.0); Neutrophils Absolute Auto 9.6 K/mm3 (1.7-7.2); Neutrophils Percent Auto 82.1 % (50.0-70.0); Platelet Count Result 279 K/mm3 (150-420); Red Blood Count 5.77 M/mm3 (4.70-6.10); Red Cell Distribution Width 12.5 % (11.6-14.4); White Blood Count 11.7 K/mm3 (4.8-10.8)
[2021-10-12 16:16] LABS: Alanine Aminotransferase 77 U/L (16-63); Albumin Level 4.6 g/dL (3.4-5.0); Alkaline Phosphatase 77 U/L (46-116); Anion Gap 16 mmol/L (8-16); Aspartate Amino Transferase 26 U/L (15-37); Bilirubin,Total 0.5 mg/dL (0.00-1.00); Blood Urea Nitrogen 14 mg/dL (7-18); Calcium 9.6 mg/dL (8.5-10.1); Carbon Dioxide 22 mmol/L (21-32); Chloride 106 mmol/L (98-108); Estimated CRCL calculation 103 ml/min; Estimated Glomerular Filt Rate > 60; Glucose 150 mg/dL (70-99); Osmolality Calculated 301 mOsm/kg (285-295); Potassium 3.9 mmol/L (3.5-5.1); Sodium 144 mmol/L (136-145)
[2021-10-12 16:44] LABS: Influenza A QL RT-PCR Negative (Negative); Influenza B QL RT-PCR Negative (Negative); SARS-CoV-2 RNA PCR Negative (Negative)
[2021-10-12] MEDS: METOCLOPRAMIDE HCL INJ 10 MG/2 ML VIAL IV PUSH (16:44)
--- NOTE | 2021-10-12 16:47 | PC.NURSE ---
[address] UP [address] HURTADO AND NEW MEDS ORDERED
[2021-10-12 16:56] LABS: Add Urine Microscopic? NO; Appearance Urine Clear (Clear); Bilirubin Urine Negative (Negative); Blood Urine Negative (Negative); Color Urine Yellow (Yellow); Glucose Urine UA Negative (Negative); Ketones Urine Negative (Negative); Leukocyte Esterase Ur Negative (Negative); Nitrate Urine Negative (Negative); Protein Urine Negative (Negative); Specific Grav Ur >= 1.030 (1.010-1.020); Urobilinogen Urine 0.2 mg/dL (0.2-1.0); pH Urine 5.5 (5.0-8.0)
[2021-10-12 17:03] LABS: Amphetamine Screen Urine Negative (Negative); Barbiturate Screen Urine Negative (Negative); Benzodiazepines Screen Urine Negative (Negative); Cannabinoid Screen Urine Positive (Negative); Cocaine Screen Urine Negative (Negative); Methadone Screen Urine Negative (Negative); Opiate Screen Urine Negative (Negative); Phencyclidine Screen Urine Negative (Negative)
[2021-10-12] MEDS: MORPHINE SULFATE (*CRX) 4 MG/ML INJ IV PUSH (17:57)
[2021-10-12 18:10] LABS: Salicylate 3.6 mg/dL (2.8-20.0)
[2021-10-12 18:11] LABS: Acetaminophen < 2 ug/mL (10-30); Ethanol < 3 mg/dL (0-6)
[2021-10-12 18:56] VITALS: BP 127/71; PULSE 110; RESP 20; TEMP 36.7; O2SAT 99
== END 2021-10-12 19:02 | disposition home or self-care (01) ==
PROVIDERS: Emergency Provider Emergency Medicine; PCP Physician Assistant
DX: K52.9 Noninfective gastroenteritis and colitis, unspecified (principal); Z20.822 Contact with and (suspected) exposure to COVID-19; F17.200 Nicotine dependence, unspecified, uncomplicated
CPT/HCPCS: 36415; 74177; 80053; 80307; 81003; 85025; 87502; 96361; 96374; 96375; 96376; 99284; C9803; J2270; J2405; J2550; J2765; J7030; Q9967; U0003; U0005

== ENCOUNTER 2022-07-26 19:41 | Emergency (ER) | payer MEDICAID, SELFPAY ==
[2022-07-26 19:44] VITALS: BP 157/100; PULSE 80; RESP 18; TEMP 36.9; O2SAT 98
--- NOTE | 2022-07-26 19:50 | ED.NAVMDI ---
HPI - Nausea/Vomiting/Diarrhea General Chief complaint: Nausea/Vomiting/Diarrhea Stated complaint: vomiting Time Seen by Provider: 07/26/22 19:49 Source: patient Mode of arrival: ambulatory Limitations: no limitations History of Present Illness HPI Narrative: 31-year-old male presents to the ER with a 2 day history of -- multiple episodes of vomiting. The vomitus is watery -- abdominal pain -- watery stools. No blood or mucus. -- decreased urine output. No fever MD elicited complaint: nausea, vomiting and diarrhea Onset (ago): day(s) ( started 2 days ago) Description of vomiting: watery Description of diarrhea: watery Associated nausea: Yes Associated abdominal pain: Yes Location of pain: diffuse Severity: mild Quality: aching Exacerbating factors: none Relieving factors: none Associated symptoms: denies other symptoms Related Data Allergies Allergy/AdvReac Type Severity Reaction Status Date / Time cedarwood Allergy Unknown Verified 07/26/22 20:21 cefaclor [From Ceclor] Allergy Unknown Verified 07/26/22 20:21 Sulfa (Sulfonamide Allergy Unknown Verified 07/26/22 20:21 Antibiotics) Review of Systems Review of Systems: All systems reviewed & are unremarkable except as noted in HPI and below Constitutional: Constitutional: Reports as per HPI and Reports no additional constitutional complaints Eyes: Eyes: Reports as per HPI and Reports no additional eye complaints ENT: Reports system reviewed and no additional complaints, except as documented and Reports as per HPI Cardiovascular: Cardiovascular: Reports as per HPI and Reports no additional cardiovascular complaints Respiratory: Respiratory: Reports as per HPI and Reports no additional respiratory complaints Gastrointestinal: Gastrointestinal: Reports as per HPI, Reports no additional gastrointestinal complaints, Reports abdominal pain, Reports diarrhea, Reports nausea and Reports vomiting Genitourinary: Genitourinary: Reports no additional male genitourinary complaints and Reports as per HPI Musculoskeletal: Musculoskeletal: Reports no additional musculoskeletal complaints and Reports as per HPI Integumentary/Breasts: Skin/Breast: Reports system reviewed and no additional complaints, except as docu and Reports as per HPI Neurologic: Reports system reviewed and no additional complaints, except as documented and Reports as per HPI Psychiatric: Psychiatric: Reports no additional psychiatric complaints and Reports as per HPI Endocrine: Endocrine: Reports no additional endocrine complaints and Reports as per HPI Hematologic/Lymphatic: Hematologic/Lymphatic: Reports no additional hematologic/lymphatic complaints and Reports as per HPI Allergic/Immunologic: Allergic/Immunologic: Reports no additional allergic/immunologic complaints and Reports as per HPI [facility] Past Medical History Medical History (Updated 07/26/22 @ 21:46 by Toney Lujan MD) No active medical problems Social History Social History Smoking status: Current every day smoker Tobacco type: cigarettes Second hand tobacco smoke exposure: Yes Alcohol intake: never Substance use: current Substance use type: marijuana Spiritual care concerns: No Exam Const: General: cooperative and ill appearing Nutritional Appearance: average body habitus Orientation/consciousness: oriented to person, oriented to place and oriented to time Limitations: no limitations HENMT: Head: normal to inspection, normocephalic and atraumatic Ears: hearing grossly normal bilaterally and external ears normal Face/Nose/Sinus: Normal external nose present Face and sinus: normal facial exam Mouth: Yes Normal oral and palatal mucosa present, Yes lip normal and Yes tongue normal Throat: posterior oropharynx normal Eyes: General: appearance normal, both eyes and all related structures Visual Faust: normal visual faust by confrontation Neck:
[2022-07-26] MEDS: PROCHLORPERAZINE EDISYLATE 10 MG/2 ML VIAL IM (19:55)
[2022-07-26] MEDS: LACTATED RINGERS 1,000 ML 999 ML IV CONT ×2 (20:08→21:28)
[2022-07-26 20:27] LABS: Basophils Absolute Auto 0.06 K/mm3 (0.00-0.10); Basophils Percent Auto 0.5 % (0.0-1.0); Eosinophils Absolute Auto 0.08 K/mm3 (0.02-0.50); Eosinophils Percent Auto 0.6 % (1.0-6.0); Hematocrit 54.4 % (40.0-54.0); Hemoglobin 19.1 g/dL (14.0-18.0); Immature Granulocyte Absolute 0.04 K/mm3 (0.00-0.00); Immature Granulocyte Percent A 0.3 % (0.0-0.0); Lymphocytes Absolute Auto 3.14 K/mm3 (1.10-4.50); Lymphocytes Percent Auto 25.2 % (18.0-42.0); Mean Corpuscular HGB Conc 35.1 g/dL (32.0-36.0); Mean Corpuscular Hemoglobin 29.5 pg (27.0-31.0); Mean Corpuscular Volume 84.1 fL (78.0-102.0); Monocytes Absolute Auto 1.51 K/mm3 (0.10-0.90); Monocytes Percent Auto 12.1 % (2.0-11.0); Neutrophils Absolute Auto 7.7 K/mm3 (1.7-7.2); Neutrophils Percent Auto 61.3 % (50.0-70.0); Platelet Count Result 369 K/mm3 (150-420); Red Blood Count 6.47 M/mm3 (4.70-6.10); Red Cell Distribution Width 12.1 % (11.6-14.4); White Blood Count 12.5 K/mm3 (4.8-10.8)
--- NOTE | 2022-07-26 20:33 | PC.NURSE ---
Pt rings call light and states his abdominal pain has increased and that he is still vomiting and having dry heaves. RN calls ERP. ERP orders 4mg of Zofran IV push. ERP states that he wants to hold off on any pain meds until lab reports have returned. RN confirms order with ERP.
[2022-07-26 20:39] LABS: Alanine Aminotransferase 44 U/L (16-63); Albumin Level 5.3 g/dL (3.4-5.0); Alkaline Phosphatase 73 U/L (46-116); Anion Gap 15 mmol/L (8-16); Aspartate Amino Transferase 18 U/L (15-37); Bilirubin,Total 1.1 mg/dL (0.00-1.00); Blood Urea Nitrogen 24 mg/dL (7-18); Calcium 10.1 mg/dL (8.5-10.1); Carbon Dioxide 24 mmol/L (21-32); Chloride 96 mmol/L (98-108); Estimated CRCL calculation 72 ml/min; Estimated Glomerular Filt Rate 56; Glucose 126 mg/dL (70-99); Lipase 21 U/L (16-77); Osmolality Calculated 286 mOsm/kg (285-295); Potassium 3.8 mmol/L (3.5-5.1); Sodium 135 mmol/L (136-145); Total Protein 9.3 g/dL (6.4-8.2)
[2022-07-26] MEDS: ONDANSETRON INJ 4 MG/2 ML VIAL IV PUSH (20:40)
[2022-07-26 21:03] LABS: Influenza A QL RT-PCR Negative (Negative); Influenza B QL RT-PCR Negative (Negative); SARS-CoV-2 RNA PCR Negative (Negative)
[2022-07-26] MEDS: HYDROmorphone HCL INJ (*CRX) 2 MG/ML VIAL 0.5 MG IV PUSH (21:11)
[2022-07-26 22:16] VITALS: BP 166/82; PULSE 81; RESP 16; TEMP 37.3; O2SAT 98
== END 2022-07-26 22:20 | disposition home or self-care (01) ==
PROVIDERS: Emergency Provider Internal Medicine Critical Care Medicine; PCP Physician Assistant
DX: K52.9 Noninfective gastroenteritis and colitis, unspecified (principal); F17.200 Nicotine dependence, unspecified, uncomplicated; Z20.822 Contact with and (suspected) exposure to COVID-19
CPT/HCPCS: 36415; 80053; 83690; 85025; 87502; 96361; 96372; 96374; 96375; 99284; J0780; J1170; J2405; J7120; U0003; U0005

== ENCOUNTER 2022-10-02 11:58 | Emergency (ER) | payer OTHER, SELFPAY ==
[2022-10-02] VITALS (23 sets, daily range): BP systolic 118–167; BP diastolic 78–105; PULSE 47–65; RESP 5–24; TEMP 36.9; O2SAT 96–100
--- NOTE | ~2022-10-02 | CT_ITS ---
EXAMINATION: CT abdomen pelvis w con DATE: 10/02/2022 14:17 INDICATION: Nausea, vomiting and diarrhea. Lower abdominal pain. TECHNIQUE: Computed tomography (CT) of the abdomen and pelvis was performed with 100 cc Omnipaque 350 intravenous contrast. The dose-length product was 537.55 mGy-cm. Automated exposure control and iterative reconstruction technique were employed. COMPARISON: CT dated 10/12/2021. FINDINGS: Lung bases are unremarkable. Heart size normal. No significant pleural or pericardial effus ion. No significant vascular abnormality. No lymphadenopathy. The spleen, pancreas, adrenal glands and kidneys are unremarkable. There is a small low-density lesio n in the right kidney, too small to characterize, although likely a cyst. Gallbladder is present. The re is fatty infiltration of the liver. Nonobstructive bowel gas pattern. There is a small hiatal popeye ia. No acute osseous abnormality. No free air or free fluid. No lymphadenopathy. IMPRESSION: 1. No acute abdominal abnormality. Reviewed, dictated and finalized at location L. [facility] ARCHITECT
--- NOTE | 2022-10-02 12:18 | ECG_ITS ---
Measurements Intervals [place] Rate: 49 P: 48 SD: 146 QRS: 81 QRSD: 89 T: 63 QT: 427 QTc: 387 Interpretive Statements SINUS BRADYCARDIA WITH SINUS ARRHYTHMIA OTHERWISE NORMAL ECG COMPARED TO ECG 01/19/2020 11:25:49 SINUS BRADYCARDIA NOW PRESENT Electronically Signed On 10-02-2022 12:42:28 SR. MEDIA MANAGER by Brayden Ortiz M.D.
[2022-10-02] MEDS: SODIUM CHLORIDE 0.9% IV 1,000 ML 999 ML IV CONT (12:30)
[2022-10-02] MEDS: ONDANSETRON INJ 4 MG/2 ML VIAL IV PUSH ×2 (12:30→14:18)
[2022-10-02] MEDS: MORPHINE SULFATE (*CRX) 4 MG/ML INJ IV PUSH (12:33)
[2022-10-02 12:41] LABS: Basophils Absolute Auto 0.07 K/mm3 (0.00-0.10); Basophils Percent Auto 0.4 % (0.0-1.0); Eosinophils Absolute Auto 0.11 K/mm3 (0.02-0.50); Eosinophils Percent Auto 0.6 % (1.0-6.0); Hematocrit 47.9 % (40.0-54.0); Immature Granulocyte Absolute 0.08 K/mm3 (0.00-0.00); Immature Granulocyte Percent A 0.5 % (0.0-0.0); Lymphocytes Absolute Auto 1.71 K/mm3 (1.10-4.50); Lymphocytes Percent Auto 9.9 % (18.0-42.0); Mean Corpuscular HGB Conc 33.4 g/dL (32.0-36.0); Mean Corpuscular Hemoglobin 29.3 pg (27.0-31.0); Mean Corpuscular Volume 87.6 fL (78.0-102.0); Mean Platelet Volume 10.4 fl (8.7-11.0); Monocytes Absolute Auto 0.85 K/mm3 (0.10-0.90); Monocytes Percent Auto 4.9 % (2.0-11.0); Neutrophils Absolute Auto 14.4 K/mm3 (1.7-7.2); Neutrophils Percent Auto 83.7 % (50.0-70.0); Platelet Count Result 330 K/mm3 (150-420); Red Blood Count 5.47 M/mm3 (4.70-6.10); Red Cell Distribution Width 12.1 % (11.6-14.4); White Blood Count 17.2 K/mm3 (4.8-10.8)
[2022-10-02 12:56] LABS: Partial Thromboplastin Time 24.8 SEC (23.90-30.70); Prothrombin Time 10.5 Seconds (9.50-12.10)
[2022-10-02 12:59] LABS: Alanine Aminotransferase 32 U/L (16-63); Albumin Level 4.8 g/dL (3.4-5.0); Alkaline Phosphatase 86 U/L (46-116); Anion Gap 11 mmol/L (8-16); Aspartate Amino Transferase 17 U/L (15-37); Bilirubin,Total 0.5 mg/dL (0.00-1.00); Blood Urea Nitrogen 14 mg/dL (7-18); Carbon Dioxide 28 mmol/L (21-32); Chloride 103 mmol/L (98-108); Estimated Glomerular Filt Rate > 60; Glucose 130 mg/dL (70-99); Lipase 21 U/L (16-77); Osmolality Calculated 296 mOsm/kg (285-295); Potassium 3.8 mmol/L (3.5-5.1); Sodium 142 mmol/L (136-145); Total Protein 8.4 g/dL (6.4-8.2)
[2022-10-02 13:02] LABS: Lactic Acid Reflex 2.8 mmol/L (0.4-2.0)
[2022-10-02 13:09] LABS: Troponin I < 4.0 ng/L (0.00-60.4)
--- NOTE | 2022-10-02 14:35 | ED.NAVMDI ---
HPI - Nausea/Vomiting/Diarrhea General Chief complaint: Nausea/Vomiting/Diarrhea Stated complaint: vomiting Time Seen by Provider: 10/02/22 12:14 Source: patient Mode of arrival: ambulatory Limitations: no limitations History of Present Illness HPI Narrative: this is a 31-year-old gentleman that presents with nausea vomiting crampy abdominal pain with diarrhea, currently there is no fever chills no chest pain no shortness of breath. Patient denies dysuria no hematuria no flank pain. Patient has been having symptoms for the last 2 days and has had difficulty keeping things down secondary to his nausea vomiting. MD elicited complaint: nausea, vomiting, diarrhea and abdominal pain Onset (ago): day(s) Description of vomiting: watery Related Data Allergies Allergy/AdvReac Type Severity Reaction Status Date / Time cedarwood Allergy Unknown Verified 10/02/22 12:12 cefaclor [From Ceclor] Allergy Unknown Verified 10/02/22 12:12 Sulfa (Sulfonamide Allergy Unknown Verified 10/02/22 12:12 Antibiotics) Review of Systems Review of Systems: All systems reviewed & are unremarkable except as noted in HPI and below PMFSH Past Medical History Medical History (Updated 10/02/22 @ 14:38 by Lazarus Kaur MD) No active medical problems Social History Social History Smoking status: Current every day smoker Tobacco type: cigarettes Second hand tobacco smoke exposure: Yes Alcohol intake: never Substance use: current Substance use type: marijuana Spiritual care concerns: No Exam Const: General: healthy appearing Nutritional Appearance: well nourished Orientation/consciousness: patient oriented x3 Limitations: no limitations HENMT: Ears: external ears normal Face/Nose/Sinus: Normal external nose present Face and sinus: normal facial exam Mouth: Yes Normal oral and palatal mucosa present Throat: posterior oropharynx normal Eyes: Conjunctivae: conjunctivae normal Pupils: Equal, round and reactive pupils present EOM: EOMs intact bilaterally Neck: Neck: normal visual inspection Chest: Chest palpation & inspection: normal inspection of the chest Resp: Effort & Inspection: normal respiratory effort Auscultation: clear to auscultation bilaterally Cardio: Rate: regular rate Rhythm: regular rhythm GI: GI Palp: Yes Soft to palpation and Yes Tenderness to palpation present (GI) : General: Yes bladder normal to palpation Urinary Catheter: Urinary Catheter: patent and draining and urine clear Skin: General skin exam: normal color Rashes: no rashes Neuro: General: patient oriented x3 and moves all extremities Cranial nerves: Yes Nystagmus not present Extrem: General: normal to inspection Psych: Mental Status: mental status grossly normal Course Course Emergency Course: Patient received IV fluids and Zofran and pain medication, labs and CT scan reviewed patient, CT scan shows no acute intra-abdominal abnormality, his white blood cell [place] was [id number] patient will be able to go home with antibiotic and Zofran. Vital Signs Vital signs: Vital Signs Temperature 36.9 C 10/02/22 12:07 Pulse Rate 60 10/02/22 12:07 Respiratory Rate 16 10/02/22 12:07 Blood Pressure 144/105 H 10/02/22 12:07 Pulse Oximetry 100 10/02/22 12:07 Oxygen Delivery Room Air 10/02/22 12:07 Temperature 36.9 C 10/02/22 12:07 Pulse Rate 60 10/02/22 12:07 Respiratory Rate 16 10/02/22 12:07 Blood Pressure 144/105 H 10/02/22 12:07 Pulse Oximetry 100 10/02/22 12:07 Oxygen Delivery Room Air 10/02/22 12:07 MDM - Nausea/Vomiting/Diarrhea Lab Data 10/02/22 12:31 10/02/22 12:31 Labs: Lab Results 10/02/22 10/02/22 10/02/22 Range/Units 12:31 12:31 12:31 WBC 17.2 H (4.8-10.8) K/mm3 RBC 5.47 (4.70-6.10) M/mm3 Hgb 16.0 (14.0-18.0) g/dL Hct 47.9 (40.0-54.0) % MCV 87.6 (78.0-102.0)
[2022-10-02 15:39] LABS: Reflex Lactic Acid Yes or No Add Lactic
== END 2022-10-02 14:57 | disposition home or self-care (01) ==
PROVIDERS: Emergency Provider Emergency Medicine; PCP Physician Assistant
DX: K52.9 Noninfective gastroenteritis and colitis, unspecified (principal); F17.210 Nicotine dependence, cigarettes, uncomplicated
CPT/HCPCS: 36415; 74177; 80053; 83605; 83690; 84484; 85025; 85610; 85730; 93005; 96361; 96374; 96375; 96376; 99284; J2270; J2405; J7030; Q9967

== ENCOUNTER 2022-10-06 15:54 | Emergency (ER) | payer OTHER, SELFPAY ==
[2022-10-06 16:51] LABS: Basophils Absolute Auto 0.06 K/mm3 (0.00-0.10); Basophils Percent Auto 0.5 % (0.0-1.0); Eosinophils Absolute Auto 0.01 K/mm3 (0.02-0.50); Eosinophils Percent Auto 0.1 % (1.0-6.0); Hematocrit 43.5 % (40.0-54.0); Hemoglobin 14.7 g/dL (14.0-18.0); Immature Granulocyte Absolute 0.03 K/mm3 (0.00-0.00); Immature Granulocyte Percent A 0.2 % (0.0-0.0); Lymphocytes Absolute Auto 1.27 K/mm3 (1.10-4.50); Lymphocytes Percent Auto 10.4 % (18.0-42.0); Mean Corpuscular HGB Conc 33.8 g/dL (32.0-36.0); Mean Corpuscular Hemoglobin 29.1 pg (27.0-31.0); Mean Platelet Volume 9.8 fl (8.7-11.0); Monocytes Absolute Auto 0.45 K/mm3 (0.10-0.90); Monocytes Percent Auto 3.7 % (2.0-11.0); Neutrophils Absolute Auto 10.4 K/mm3 (1.7-7.2); Neutrophils Percent Auto 85.1 % (50.0-70.0); Platelet Count Result 312 K/mm3 (150-420); Red Blood Count 5.06 M/mm3 (4.70-6.10); Red Cell Distribution Width 12.2 % (11.6-14.4); White Blood Count 12.2 K/mm3 (4.8-10.8)
[2022-10-06] MEDS: AMOXICILLIN 500 MG CAPSULE PO (16:59)
[2022-10-06] MEDS: SODIUM CHLORIDE 0.9% IV 1,000 ML 999 ML IV CONT (17:01)
[2022-10-06 17:05] LABS: Alanine Aminotransferase 26 U/L (16-63); Albumin Level 4.4 g/dL (3.4-5.0); Alkaline Phosphatase 72 U/L (46-116); Anion Gap 10 mmol/L (8-16); Aspartate Amino Transferase 17 U/L (15-37); Bilirubin,Total 0.5 mg/dL (0.00-1.00); Blood Urea Nitrogen 13 mg/dL (7-18); Calcium 9.2 mg/dL (8.5-10.1); Carbon Dioxide 29 mmol/L (21-32); Chloride 103 mmol/L (98-108); Estimated Glomerular Filt Rate > 60; Glucose 114 mg/dL (70-99); Magnesium 2.1 mg/dL (1.8-2.4); Osmolality Calculated 295 mOsm/kg (285-295); Potassium 3.7 mmol/L (3.5-5.1); Sodium 142 mmol/L (136-145); Total Protein 7.6 g/dL (6.4-8.2)
[2022-10-06 17:08] LABS: Lactic Acid Reflex 0.7 mmol/L (0.4-2.0)
--- NOTE | 2022-10-06 17:16 | ED.GENADULT ---
HPI - General Adult General Chief complaint: Nausea/Vomiting/Diarrhea Stated complaint: stomach infection since last History of Present Illness HPI narrative: The patient is a 31-year-old male who was diagnosed with gastroenteritis 4 days ago, 10/30/2022. He still has persistent symptoms of nausea vomiting and loose diarrheal stools. He had 2 episodes of emesis today, 1 yesterday, most recently at 2:00 p.m., 3 hours ago. He has had loose stools, 2 today, 3 yesterday. He did use his last Zofran this afternoon at 2:00 p.m. for nausea. He still has some nausea sensation. Also with mild lower abdominal discomfort. Occasional rhinorrhea. No fevers or chills or diaphoresis. No cough or nasal congestion or sore throat. He also complains of pain in his left upper molar, 2nd from the back, the site of dental caries with partial chipping of the tooth. There is no swelling of the gums or drainage from the tooth. he has called his dentist and he can see him in October. Related Data Allergies Allergy/AdvReac Type Severity Reaction Status Date / Time [place] Allergy Unknown Verified 10/06/22 17:31 cefaclor [From Ceclor] Allergy Unknown Verified 10/06/22 17:31 Sulfa (Sulfonamide Allergy Unknown Verified 10/06/22 17:31 Antibiotics) Review of Systems Review of Systems: All systems reviewed & are unremarkable except as noted in HPI and below Constitutional: Constitutional: Reports as per HPI, Reports no additional constitutional complaints, Denies chills, Denies excessive sweating, Denies fatigue, Denies fever(s), Denies headache(s) and Denies weakness Eyes: Eyes: Reports as per HPI, Reports no additional eye complaints, Denies change in vision and Denies photophobia ENT: Reports system reviewed and no additional complaints, except as documented, Reports as per HPI, Denies dysphagia, Denies vertigo, Denies dizziness, Denies headache(s), Denies lip swelling, Denies nasal congestion, Denies sore throat, Denies throat swelling and Denies tongue swelling Comments: Dental tenderness present Cardiovascular: Cardiovascular: Reports as per HPI, Reports no additional cardiovascular complaints, Denies chest pain, Denies syncope, Denies rapid heart rate and Denies dyspnea Respiratory: Respiratory: Reports as per HPI, Reports no additional respiratory complaints, Denies chest congestion, Denies cough, Denies dyspnea and Denies wheezing Gastrointestinal: Gastrointestinal: Reports as per HPI, Reports no additional gastrointestinal complaints, Reports abdominal pain, Denies constipation, Denies dysphagia, Reports diarrhea, Reports nausea and Reports vomiting Genitourinary: Genitourinary: Reports as per HPI, Denies hematuria, Denies oliguria, Denies dysuria, Denies urinary frequency, Denies urinary incontinence and Denies urinary urgency Musculoskeletal: Musculoskeletal: Reports no additional musculoskeletal complaints, Denies back pain, Denies myalgias, Denies arthralgias, Denies joint swelling and Denies numbness Integumentary/Breasts: Skin/Breast: Reports system reviewed and no additional complaints, except as docu, Denies pruritus, Denies erythema, Denies rash and Denies skin ulcer Neurologic: Reports system reviewed and no additional complaints, except as documented, Reports as per HPI, Denies confusion, Denies vertigo, Denies dizziness, Denies syncope, Denies headache(s), Denies focal weakness, Denies numbness and Denies weakness Psychiatric: Psychiatric: Reports as per HPI, Denies anxiety, Denies confusion, Denies depression, Denies homicidal ideation and Denies suicidal ideation Endocrine: Endocrine: Reports no additional endocrine complaints, Denies excessive sweating, Denies fatigue, Denies polydipsia and Denies polyuria Hematologic/Lymphatic: Hematologic/Lymphatic: Reports no additional hematologic/lymphatic complaints, Denies easy bleeding and Denies easy bruising Allergic/Immunologic: Allergic/Immunologic: Reports no additional aller
[2022-10-06 17:40] VITALS: BP 127/73; PULSE 89; RESP 20; TEMP 37.1; O2SAT 98
--- NOTE | 2022-10-06 17:41 | PC.NURSE ---
On 10/06/22, the student, [mary canada ], provided care and completed [facility] documentation on this patient. I have reviewed the student's documentation and agree with the findings.
== END 2022-10-06 17:45 | disposition home or self-care (01) ==
PROVIDERS: Emergency Provider Emergency Medicine; PCP Registered Nurse
DX: K52.9 Noninfective gastroenteritis and colitis, unspecified (principal); K02.9 Dental caries, unspecified; F17.200 Nicotine dependence, unspecified, uncomplicated
CPT/HCPCS: 36415; 80053; 83605; 83735; 85025; 99283; A9270; J7030

== ENCOUNTER 2023-03-09 19:28 | Emergency (ER) | payer OTHER, SELFPAY ==
[2023-03-09 19:30] VITALS: BP 128/77; PULSE 64; RESP 20; TEMP 37.2; O2SAT 97
--- NOTE | 2023-03-09 19:43 | ED.GENADULT ---
HPI - General Adult General Chief complaint: Nausea/Vomiting/Diarrhea Stated complaint: vomiting Time Seen by Provider: 03/09/23 19:36 History of Present Illness HPI narrative: the patient is a 32-year-old male who has had intermittent episodes of epigastric abdominal discomfort the heartburn symptoms for the last 5 years. Last week, he had a 36 hour episode of nausea vomiting and epigastric abdominal cramps. He called his primary care provider prescribed him Zofran ODT p.r.n.. Symptoms subsided. He then had recurrence of his symptoms since 11:00 a.m. this morning 03/09/2023, with multiple episodes of emesis between 11:00 a.m. and 4:00 p.m. today. He took 2 Zofran tablets and his symptoms have improved but he still is nauseated. Did have some blood with the emesis. Did have a normal bowel movement earlier today. No diarrhea or constipation. No fevers or chills. Mild epigastric abdominal discomfort which is improved. No urinary symptoms. No other complaints. He is due to see his PCP tomorrow for consideration of upper endoscopy. Related Data Allergies Allergy/AdvReac Type Severity Reaction Status Date / Time [place] Allergy Unknown Verified 10/06/22 17:31 cefaclor [From Ceclor] Allergy Unknown Verified 10/06/22 17:31 Sulfa (Sulfonamide Allergy Unknown Verified 10/06/22 17:31 Antibiotics) Review of Systems Review of Systems: All systems reviewed & are unremarkable except as noted in HPI and below Constitutional: Constitutional: Denies chills, Denies excessive sweating, Denies fatigue, Denies fever(s), Denies headache(s) and Denies weakness Eyes: Eyes: Denies change in vision and Denies photophobia ENT: Denies dysphagia, Denies dizziness, Denies headache(s), Denies lip swelling, Denies nasal congestion, Denies sore throat and Denies tongue swelling Cardiovascular: Cardiovascular: Denies chest pain, Denies syncope, Denies rapid heart rate and Denies dyspnea Respiratory: Respiratory: Denies cough, Denies dyspnea and Denies wheezing Gastrointestinal: Gastrointestinal: Reports abdominal pain (epigastric abdominal pain (mild)), Denies constipation, Denies dysphagia, Denies diarrhea, Reports nausea and Reports vomiting Genitourinary: Genitourinary: Denies hematuria, Denies dysuria, Denies urinary frequency and Denies urinary urgency Musculoskeletal: Musculoskeletal: Denies back pain, Denies myalgias, Denies arthralgias, Denies joint swelling and Denies numbness Integumentary/Breasts: Skin/Breast: Denies pruritus, Denies erythema and Denies rash Neurologic: Denies confusion, Denies dizziness, Denies syncope, Denies headache(s), Denies focal weakness, Denies numbness and Denies weakness Psychiatric: Psychiatric: Denies anxiety and Denies confusion Endocrine: Endocrine: Denies excessive sweating and Denies fatigue Hematologic/Lymphatic: Hematologic/Lymphatic: Denies easy bleeding and Denies easy bruising Allergic/Immunologic: Allergic/Immunologic: Denies lip swelling, Denies tongue swelling and Denies wheezing PMFSH Past Medical History Medical History (Updated 03/09/23 @ 21:16 by Damien Poon MD) No active medical problems Social History Social History Smoking status: Current every day smoker Tobacco type: cigarettes Second hand tobacco smoke exposure: Yes Alcohol intake: never Substance use: current Substance use type: marijuana Spiritual care concerns: No Exam Const: General: healthy appearing, no acute distress, alert and well nourished Nutritional Appearance: well nourished Orientation/consciousness: patient oriented x3 Limitations: no limitations HENMT: Head: normal to inspection Ears: external ears normal Face/Nose/Sinus: normal facial exam Face and sinus: normal facial exam Mouth: Yes dry mucous membranes Throat: posterior oropharynx normal Eyes: Conjunctivae: conjunctivae normal Pupils: Equal, round and reactive pupils p
[2023-03-09 19:53] LABS: Basophils Absolute Auto 0.03 K/mm3 (0.00-0.10); Basophils Percent Auto 0.2 % (0.0-1.0); Hematocrit 48.4 % (40.0-54.0); Hemoglobin 16.7 g/dL (14.0-18.0); Immature Granulocyte Absolute 0.07 K/mm3 (0.00-0.00); Immature Granulocyte Percent A 0.4 % (0.0-0.0); Lymphocytes Absolute Auto 0.91 K/mm3 (1.10-4.50); Lymphocytes Percent Auto 5.1 % (18.0-42.0); Mean Corpuscular HGB Conc 34.5 g/dL (32.0-36.0); Mean Corpuscular Hemoglobin 29.8 pg (27.0-31.0); Mean Corpuscular Volume 86.3 fL (78.0-102.0); Mean Platelet Volume 10.4 fl (8.7-11.0); Monocytes Absolute Auto 0.83 K/mm3 (0.10-0.90); Monocytes Percent Auto 4.7 % (2.0-11.0); Neutrophils Absolute Auto 15.9 K/mm3 (1.7-7.2); Neutrophils Percent Auto 89.6 % (50.0-70.0); Platelet Count Result 281 K/mm3 (150-420); Red Blood Count 5.61 M/mm3 (4.70-6.10); Red Cell Distribution Width 12.3 % (11.6-14.4); White Blood Count 17.8 K/mm3 (4.8-10.8)
[2023-03-09] MEDS: PANTOPRAZOLE SODIUM IV 40 MG VIAL IV PUSH ×2 (20:02→20:22)
[2023-03-09] MEDS: SODIUM CHLORIDE 0.9% IV 1,000 ML 999 ML IV CONT ×2 (20:02→20:57)
[2023-03-09] MEDS: ONDANSETRON INJ 4 MG/2 ML VIAL IV PUSH (20:02)
[2023-03-09] MEDS: METOCLOPRAMIDE HCL INJ 10 MG/2 ML VIAL IV PUSH (20:02)
[2023-03-09] MEDS: MAG HYDROX/ALUMINUM HYD/SIMETH 30 ML, PHENobarb/HYOSCY/ATROPINE/SCOP 32.4 MG, LIDOCAINE... PO (20:03)
[2023-03-09 20:12] LABS: Lactic Acid Reflex 0.9 mmol/L (0.4-2.0)
[2023-03-09] MEDS: LORazepam INJ (*CRX) 2 MG/ML VIAL 0.5 MG IV PUSH (20:16)
[2023-03-09] MEDS: MORPHINE SULFATE (*CRX) 4 MG/ML INJ IV PUSH (20:17)
[2023-03-09 20:21] LABS: Alanine Aminotransferase 25 U/L (16-63); Albumin Level 4.7 g/dL (3.4-5.0); Alkaline Phosphatase 75 U/L (46-116); Amylase 39 U/L (25-115); Anion Gap 12 mmol/L (8-16); Aspartate Amino Transferase 14 U/L (15-37); Bilirubin,Total 0.7 mg/dL (0.00-1.00); Blood Urea Nitrogen 12 mg/dL (7-18); Calcium 9.7 mg/dL (8.5-10.1); Carbon Dioxide 26 mmol/L (21-32); Chloride 103 mmol/L (98-108); Estimated CRCL calculation 86 ml/min; Estimated Glomerular Filt Rate > 60; Glucose 131 mg/dL (70-99); Lipase 16 U/L (16-77); Osmolality Calculated 293 mOsm/kg (285-295); Potassium 4.3 mmol/L (3.5-5.1); Sodium 141 mmol/L (136-145)
[2023-03-09 20:33] VITALS: BP 117/71; PULSE 64; RESP 18; O2SAT 97
[2023-03-09 20:48] LABS: Appearance Urine Clear (Clear); Bilirubin Urine 1+ (Negative); Blood Urine Trace-Intact (Negative); Color Urine Yellow (Yellow); Glucose Urine UA Negative (Negative); Ketones Urine 1+ (Negative); Leukocyte Esterase Ur Negative LEU/UL (Negative); Nitrate Urine Negative (Negative); Protein Urine 1+ (Negative); Specific Grav Ur >= 1.030 (1.010-1.020); Urobilinogen Urine 0.2 mg/dL (0.2-1.0)
[2023-03-09 20:54] LABS: Add Urine Microscopic? YES; Bacteria Urine 2+ /hpf; Mucus Urine Heavy /lpf; RBC Urine 0-2 /hpf (0-2); Squamous Epithelial Cell Urine None seen /hpf (Few); WBC Urine 0-3 /hpf (0-3)
[2023-03-09 21:22] VITALS: BP 122/70; PULSE 74; RESP 18; TEMP 37.3; O2SAT 98
== END 2023-03-09 21:24 | disposition home or self-care (01) ==
PROVIDERS: Emergency Provider Emergency Medicine; PCP Physician Assistant
DX: R12 Heartburn (principal); R11.2 Nausea with vomiting, unspecified; F17.210 Nicotine dependence, cigarettes, uncomplicated
CPT/HCPCS: 36415; 80053; 81001; 82150; 83605; 83690; 83735; 85025; 96361; 96374; 96375; 99284; A9270; C9113; J2060; J2270; J2405; J2765; J7030